=== PATIENT | male | born 1965 | race Hispanic/Latino ===

== ENCOUNTER 2018-02-03 09:47 | Outpatient (CLI) | payer OTHER ==
--- NOTE | 2018-02-03 13:20 | RAD ---
LEFT KNEE FOUR VIEWS: HISTORY: Calcification and ossification of muscle. FINDINGS: No fracture, dislocation, or bony destruction is seen. No tissue ossification/calcification is seen. POS: [facility]
== END 2018-02-03 09:48 | disposition home or self-care (01) ==
LOC: BICRAD 09:47
PROVIDERS: ATTEND Nurse Practitioner Family
DX: M65.9 Synovitis and tenosynovitis, unspecified (principal)

== ENCOUNTER 2019-08-30 08:33 | Emergency (ER) | payer SELFPAY ==
[2019-08-30] MEDS ORDERED: Bupivacaine 0.5% 10 ML VIAL ONE (09:04)
[2019-08-30] MEDS ORDERED: Lidocaine 1% (PF) 30 ML VIAL ONE (09:04)
--- NOTE | 2019-08-30 10:04 | RAD ---
LEFT FINGER (THUMB) 3 VIEWS: Date: 08/30/2019 HISTORY: Injury, laceration, left thumb pain. FINDINGS/IMPRESSION: No acute fracture or dislocation is seen. No radiopaque foreign body is identified. POS: [facility]
[2019-08-30] MEDS ORDERED: Bacitracin 1 PK ONE (10:26)
== END 2019-08-30 11:25 | disposition home or self-care (01) ==
LOC: ERS 08:33
DX: S61.012A Laceration without foreign body of left thumb without damage to nail, initial encounter (principal); E11.9 Type 2 diabetes mellitus without complications; E78.5 Hyperlipidemia, unspecified; E78.00 Pure hypercholesterolemia, unspecified; I10 Essential (primary) hypertension; Z87.891 Personal history of nicotine dependence; Z79.84 Long term (current) use of oral hypoglycemic drugs; Z79.899 Other long term (current) drug therapy; W20.8XXA Other cause of strike by thrown, projected or falling object, initial encounter
CPT/HCPCS: 12002; J2001; J3490

== ENCOUNTER 2019-09-07 12:55 | Emergency (ER) | payer SELFPAY | END 2019-09-07 13:58 | disposition home or self-care (01) | LOC: ERS 12:55 | DX: S61.012D Laceration without foreign body of left thumb without damage to nail, subsequent encounter (principal); E11.9 Type 2 diabetes mellitus without complications; E78.5 Hyperlipidemia, unspecified; E78.00 Pure hypercholesterolemia, unspecified; I10 Essential (primary) hypertension; Z79.84 Long term (current) use of oral hypoglycemic drugs; Z79.899 Other long term (current) drug therapy; Z87.891 Personal history of nicotine dependence; X58.XXXD Exposure to other specified factors, subsequent encounter ==